=== PATIENT | male | born 2000 | race Caucasian/White ===

== ENCOUNTER 2021-11-26 12:15 | Emergency (ER) | payer OTHER, SELFPAY ==
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
[2021-11-26 12:21] VITALS: BP 143/76; PULSE 76; RESP 14; TEMP 36.6; O2SAT 100
[2021-11-26 12:27] VITALS: BP 143/76; PULSE 76; RESP 14; TEMP 36.6; O2SAT 100
== END 2021-11-26 12:35 | disposition home or self-care (01) ==
PROVIDERS: Emergency Provider Nurse Practitioner Family; PCP Physician Assistant
DX: S39.012A Strain of muscle, fascia and tendon of lower back, initial encounter (principal); X50.9XXA Other and unspecified overexertion or strenuous movements or postures, initial encounter; Y99.0 Civilian activity done for income or pay
CPT/HCPCS: 99202; G0463

== ENCOUNTER 2023-04-28 11:08 | Emergency (ER) | payer OTHER, SELFPAY ==
[2023-04-28 11:17] VITALS: BP 154/92; PULSE 94; RESP 18; TEMP 36.8; O2SAT 100
--- NOTE | 2023-04-28 11:34 | ED.URI ---
HPI - URI/Sore Throat General Chief Complaint: Upper Respiratory Infection Stated Complaint: congestion and losing voice Time Seen by Provider: 04/28/23 11:35 Source: patient Mode of arrival: ambulatory History of Present Illness HPI Narrative: 23-year-old male presents with complaint of nasal congestion, postnasal drainage, sore throat for 5 days. Afebrile. Denies headache. Denies chills, body aches, fatigue. Patient missed work today and needs note to return. All systems reviewed and negative except as noted above. Related Data Home Medications Medication Instructions Recorded Confirmed No Home Medications 11/26/21 11/26/21 Allergies Allergy/AdvReac Type Severity Reaction Status Date / Time No Known Allergies Allergy Unknown Verified 11/26/21 12:26 Review of Systems Review of Systems: CONSTITUTIONAL: Denies fever, chills, or sweats. EYES: Denies visual changes, redness, or discharge. ENT: Reports rhinorrhea, congestion, sore throat. Denies otalgia. CARDIOVASCULAR: Denies chest pain, palpitations, or edema. RESPIRATORY: Denies cough or dyspnea. GASTROINTESTINAL: Denies abdominal pain, nausea, vomiting, or diarrhea. GENITOURINARY: Denies dysuria or hematuria. SKIN: Denies rash or itching. MUSCULOSKELETAL: Denies back pain, joint pain, or myalgia. NEUROLOGIC: Denies headache, numbness, or weakness. PSYCHIATRIC: Denies anxiety or depression. All other systems reviewed are negative, except as documented in HPI. PMFSH Comments At time of signature, agree with nursing past medical, surgical, social and family history. There is no relevant family history pertinent to the presenting complaint. Exam Narrative: GENERAL: This is a well-nourished, well-developed patient, in no apparent distress. HEAD: normocephalic, atraumatic. EYES: PERRL. Sclera clear/white. Vision is grossly intact. EARS: External ears normal, auditory canals clear and without drainage, TMs normal without perforation. Hearing grossly intact. NOSE: External nose normal with clear nasal drainage, mild erythema to nares THROAT: Mucous membranes moist, mild erythema with postnasal drainage NECK: Neck supple, non-tender without lymphadenopathy, masses or thyromegaly. CARDIOVASCULAR: Regular rate and rhythm without murmurs, gallops, or rubs. RESPIRATORY: Clear to auscultation. Breath sounds equal bilaterally. No wheezes, rales, or rhonchi. SKIN: warm, Dry, intact with no suspicious lesions or rash, good texture and turgor. NEURO: awake, alert, and oriented to person, place and time. There were no obvious focal neurologic abnormalities. EXTREMITIES: No joint tenderness, effusion, or edema noted. Course Course Level of Care: Express Care Visit Vital Signs Vital signs: Vital Signs Temperature 36.8 C 04/28/23 11:17 Pulse Rate 94 04/28/23 11:17 Respiratory Rate 18 04/28/23 11:17 Blood Pressure 154/92 H 04/28/23 11:17 Pulse Oximetry 100 04/28/23 11:17 Oxygen Delivery Room Air 04/28/23 11:17 Temperature 36.8 C 04/28/23 11:17 Pulse Rate 94 04/28/23 11:17 Respiratory Rate 18 04/28/23 11:17 Blood Pressure 154/92 H 04/28/23 11:17 Pulse Oximetry 100 04/28/23 11:17 Oxygen Delivery Room Air 04/28/23 11:17 Reviewed MDM - URI/Sore Throat MDM Narrative Medical decision making narrative: Negative COVID, influenza and strep test. Patient is well-appearing, nontoxic. Will treat viral sinusitis with [id number] medications. Patient is aware of diagnosis, understands and agrees to treatment plan. Anticipatory guidance given. Patient agrees to follow-up as directed and is aware of reasons to seek care at the emergency department. Portions of this record may have been created with voice recognition software Differential Diagnosis Differential diagnosis: Likely upper respiratory infection, sinusitis and viral infection Lab Data Labs: Lab Results 04/28/23 Range/Units Unknown POC SARS CoV
== END 2023-04-28 11:45 | disposition home or self-care (01) ==
PROVIDERS: Emergency Provider Nurse Practitioner Family; PCP Physician Assistant
DX: J01.90 Acute sinusitis, unspecified (principal); Z20.822 Contact with and (suspected) exposure to COVID-19
CPT/HCPCS: 87081; 87426; 87804; 87880; 99213; G0463

== ENCOUNTER 2023-12-09 10:47 | Emergency (ER) | payer OTHER, SELFPAY ==
--- NOTE | ~2023-12-09 | XR_ITS ---
EXAMINATION: XR finger 3rd LT min 2V DATE: 12/09/2023 11:14 INDICATION: Laceration to the left third digit TECHNIQUE: Dorsal palmar, lateral and 2 oblique views of the left third digit were obtained COMPARISON: None FINDINGS: Soft tissue swelling at the distal phalanx of the left third digit with suggestion of a laceration at the ulnar side of the distal phalanx. No radiopaque foreign bodies. Bone alignment is normal with no fracture and with normal joint spaces. IMPRESSION: 1. No osseous abnormality or radiopaque foreign body. Reviewed, dictated and finalized at location A.
[2023-12-09 10:47] VITALS: BP 164/88; PULSE 89; RESP 16; TEMP 36.5; O2SAT 100
--- NOTE | 2023-12-09 12:06 | ED.WOUNDLAC ---
HPI - Wound/Laceration General Chief Complaint: Wound/Laceration Stated Complaint: finger lac Time Seen by Provider: 12/09/23 10:54 History of Present Illness HPI narrative: 23-year-old male presents presents to the emergency department for laceration to his right 3rd finger that occurred prior to arrival. 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 Last Tdap unknown. Bleeding controlled. Denies difficulty with range of motion of finger. Related Data Allergies Allergy/AdvReac Type Severity Reaction Status Date / Time No Known Allergies Allergy Unknown Verified 12/09/23 10:50 Review of Systems Review of Systems: All systems reviewed & are unremarkable except as noted in HPI and below Exam Narrative: GENERAL: Well-appearing, well-nourished, and in no acute distress. HEAD: Normocephalic, atraumatic. ENT: Nares clear, no rhinorrhea or epistaxis. Mucous membranes moist. NECK: Supple. CHEST: Clear to auscultation. No respiratory distress. HEART: Regular rate and rhythm. No murmur heard. Normal peripheral pulses. EXTREMITIES: Normal range of motion. No edema. SKIN: 3 cm laceration over the palmar aspect of the right 3rd distal phalanx with exposed subcutaneous tissue. Otherwise no deep structures or foreign bodies visualized. Patient has full active and passive range of motion of finger. Cap refill less than 2. Sensation intact. NEURO: No focal deficits. Alert and oriented x3 Course Vital Signs Vital signs: Vital Signs Temperature 97.7 F 12/09/23 10:47 Pulse Rate 89 12/09/23 10:47 Respiratory Rate 16 12/09/23 10:47 Blood Pressure 164/88 H 12/09/23 10:47 Pulse Oximetry 100 12/09/23 10:47 Temperature 97.7 F 12/09/23 10:47 Pulse Rate 89 12/09/23 10:47 Respiratory Rate 16 12/09/23 10:47 Blood Pressure 164/88 H 12/09/23 10:47 Pulse Oximetry 100 12/09/23 10:47 Procedures Laceration Laceration 1: Date: 12/09/23 Time: 12:10 Site: upper extremity Side (If applicable): right Size (cm): 3 Description: linear Depth: simple, single layer Local Anesthetic: lidocaine 1% Amount of anesthesia used (mL): 2 Pre-repair: wound explored, irrigated and irrigated extensively ====== Skin Level ====== Skin layer closed with: nylon Size (cm): 5-0 Number of sutures: 3 Technique: simple, interrupted ====== Subcutaneous Layer ====== ====== Muscle Layer ====== ====== Tendon Layer ====== MDM - Wound/Laceration MDM Narrative Medical decision making narrative: 23-year-old male presents to the emergency department for laceration to his right 3rd finger that occurred prior to arrival. See HPI for further history. Triage vital significant for blood pressure 164/88, otherwise unremarkable. Exam is significant for 3 cm laceration over the palmar aspect of the right 3rd distal phalanx, bleeding is controlled. There are no deep structures or foreign bodies visualized. He is neurovascularly intact. X-rays are unremarkable. Local anesthetic applied and 3 sutures placed without complications After extensive irrigation. Given patient's job and dirty hands, will place him on prophylaxis antibiotics. Keflex provided here and sent to pharmacy. Tdap updated. I discussed suture removal in 7 days and strict ED return precautions. He is agreeable to plan verbalized understanding. Discharged in stable condition. Discharge Plan Discharge Clinical Impression: Laceration Patient Disposition: Home, Self-Care Condition: Stable Instructions: Antibiotic Form, Care For Your Stitches (ED), Laceration (ED) Additional Instructions: your evaluated in the emergency department for laceration to your finger. You had 3 stitches placed. Please get these removed in 7 days. Please keep the area clean and dry. While working, jermaine
[2023-12-09] MEDS: CEPHALEXIN 500 MG CAPSULE PO (12:17)
[2023-12-09] MEDS: TETANUS,DIPHTHERIA,AC PERTUSSIS ADULT (0.5 ML) BOOSTRIX IM (12:17)
[2023-12-09 12:23] VITALS: BP 132/80; PULSE 78; RESP 16; TEMP 36.4; O2SAT 100
== END 2023-12-09 12:24 | disposition home or self-care (01) ==
PROVIDERS: Emergency Provider Physician Assistant; PCP Physician Assistant
DX: S61.212A Laceration without foreign body of right middle finger without damage to nail, initial encounter (principal); W26.9XXA Contact with unspecified sharp object(s), initial encounter; Z23 Encounter for immunization
CPT/HCPCS: 12002; 73140; 90471; 90715; 99283; A9270; J2003